=== PATIENT | female | born 1975 | race Asian ===

== ENCOUNTER 2016-10-21 00:29 | Inpatient (IN) | payer SELFPAY ==
[~2016-10-21] VITALS: Ht 165 cm; Wt 71.7 kg
[2016-10-21] MEDS ORDERED: LACTATED RINGERS 1,000 ML IV SCH (01:06)
[2016-10-21] MEDS ORDERED: NATURAL IRON65 MG PO (01:06)
[2016-10-21] MEDS ORDERED: METHYLERGONOVINE 0.2 MG/ML AMP IM PRN ×2 (01:10→06:20)
[2016-10-21] MEDS ORDERED: CARBOPROST 250 MCG/ML AMP IM PRN (01:10)
[2016-10-21] MEDS ORDERED: AMPICILLIN 2,000 MG VIAL ONE (05:45)
[2016-10-21] MEDS ORDERED: TRIAMCINOLONE 40 MG/ML 5ML VIAL ONE (05:49)
[2016-10-21] MEDS ORDERED: OXYTOCIN 10 UNITS/ML VIAL ONE ×2 (05:50→05:59)
[2016-10-21] MEDS ORDERED: METHYLERGONOVINE 0.2 MG/ML AMP ONE (05:50)
[2016-10-21] MEDS ORDERED: ePHEDrine 50 MG/ML VIAL ONE (05:59)
[2016-10-21] MEDS ORDERED: GLYCOPYRROLATE 0.2 MG/ML VIAL ONE (05:59)
[2016-10-21] MEDS ORDERED: BUPIVACAINE-MPF 0.75% 10 ML VIAL INJ ONE (05:59)
[2016-10-21] MEDS ORDERED: ceFAZolin 1,000 MG VIAL ONE (06:02)
[2016-10-21] MEDS ORDERED: fentaNYL 0.05 MG/ML VIAL ONE (06:09)
[2016-10-21] MEDS ORDERED: MORPHINE PRES FREE 10 MG/10 ML AMP IV ONE (06:09)
[2016-10-21] MEDS ORDERED: TRIMETHOBENZAMIDE 200 MG/2 ML SYR IM PRN (06:20)
[2016-10-21] MEDS ORDERED: MEASLES, MUMPS, AND RUBELLA 1 VIAL SQVAC PRN (06:20)
[2016-10-21] MEDS ORDERED: diphenhydrAMINE 50 MG/ML VIAL IVP PRN (06:25)
[2016-10-21] MEDS ORDERED: ONDANSETRON 4 MG/2 ML VIAL IVP PRN ×2 (06:25)
[2016-10-21] MEDS ORDERED: NALBUPHINE 10 MG/ML AMP IVP PRN (06:25)
[2016-10-21] MEDS ORDERED: NALOXONE 0.4 MG/ML VIAL IVP PRN ×3 (06:25)
[2016-10-21] MEDS ORDERED: KETOROLAC 60 MG/2 ML VIAL IM PRN (06:25)
[2016-10-21] MEDS ORDERED: diphenhydrAMINE 50 MG/ML VIAL ONE (06:56)
[2016-10-21] MEDS ORDERED: ONDANSETRON 4 MG/2 ML VIAL ONE (06:56)
[2016-10-21] MEDS: OXYTOCIN 20 UNITS/LR PREMIX 1,000 ML IV SCH ×3 (07:03→13:29)
[2016-10-21] MEDS ORDERED: OXYTOCIN 20 UNITS/LR PREMIX 1,000 ML IV ONE (07:29)
--- NOTE | 2016-10-21 09:07 | NUR ---
PATIENT HAS BEEN SCREENED AND CATEGORIZED LOW NUTRITION RISK. PATIENT WILL BE SEEN WITHIN 7 DAYS OF ADMISSION. 10/27/[address]
[2016-10-21] MEDS: DOCUSATE SOD/SENNA 50/8.6 MG 1 TAB PO SCH (19:53)
[2016-10-22] MEDS ORDERED: TEMAZEPAM 15 MG CAP PO PRN (01:00)
[2016-10-22] MEDS ORDERED: oxyCODONE/APAP 5/325 MG 1 TAB TAB PO PRN (01:00)
[2016-10-22] MEDS ORDERED: HYDROcodone/APAP 5/325 MG 1 TAB TAB PO PRN (01:00)
[2016-10-22] MEDS: OXYTOCIN 20 UNITS/LR PREMIX 1,000 ML IV SCH (04:59)
[2016-10-22] MEDS: IBUPROFEN 800 MG TAB PO PRN ×2 (09:06→20:45)
[2016-10-22] MEDS: DOCUSATE SOD/SENNA 50/8.6 MG 1 TAB PO SCH (20:44)
[2016-10-22] MEDS: SIMETHICONE 80 MG TAB.CHEW PO PRN (20:45)
[2016-10-23] MEDS: SIMETHICONE 80 MG TAB.CHEW PO PRN (08:44)
[2016-10-23] MEDS: DOCUSATE SOD/SENNA 50/8.6 MG 1 TAB PO SCH (21:00)
== END 2016-10-24 11:50 | disposition home or self-care (01) | DRG 766 ==
LOC: MLD 00:29 → MFCC 06:35
PROVIDERS: ADMIT Obstetrics & Gynecology; ATTEND Obstetrics & Gynecology
PROC: 10D00Z1 Extraction of Products of Conception, Low, Open Approach (ICD-10-PCS; principal; 2016-10-21 06:00)
DX: O34.211 Maternal care for low transverse scar from previous cesarean delivery (principal); O69.81X0 Labor and delivery complicated by cord around neck, without compression, not applicable or unspecified; Z37.0 Single live birth; O09.523 Supervision of elderly multigravida, third trimester; Z28.21 Immunization not carried out because of patient refusal; O09.293 Supervision of pregnancy with other poor reproductive or obstetric history, third trimester; Z3A.39 39 weeks gestation of pregnancy